=== PATIENT | male | born 1965 | race Caucasian/White ===

== ENCOUNTER 2020-05-02 09:44 | Inpatient (IN) | payer OTHER, SELFPAY ==
[~2020-05-02] VITALS: Ht 177.8 cm; Wt 89.9 kg
[2020-05-02] MEDS ORDERED: [UNRECOGNIZED DRUG - REMARK] (09:51)
[2020-05-02] MEDS ORDERED: NS 1,000 ML IV ONE (10:15)
[2020-05-02 10:31] LABS: BASO # 0.1 10^3/uL (0.0-0.2); BASO % 0.3 % (0.0-1.0); EOS # 0.1 10^3/uL (0.0-0.5); EOS % 0.3 % (0.0-3.0); HEMATOCRIT 48.6 % (42.0-52.0); HEMOGLOBIN 16.6 g/dl (13.5-17.5); LYMPH # 2.8 10^3/uL (1.5-5.0); LYMPH % 11.6 % (24.0-44.0); MEAN CORPUSCULAR HEMOGLOBIN 32.3 pg (27.0-33.0); MEAN CORPUSCULAR HGB CONC 34.2 g/dl (32.0-36.5); MEAN CORPUSCULAR VOLUME 94.6 fl (80.0-96.0); MONO # 1.4 10^3/uL (0.0-0.8); NEUTROPHILS # 19.5 10^3/uL (1.5-8.5); NEUTROPHILS % 81.1 % (36.0-66.0); PLATELET COUNT, AUTOMATED 280 10^3/uL (150-450); RED BLOOD COUNT 5.14 10^6/uL (4.30-6.10)
--- NOTE | 2020-05-02 10:38 | REP ---
Acute abdominal series: Three views. History: Abdominal pain. Findings: Upright chest radiograph is normal. There is no evidence of infiltrate or free subdiaphragmatic air air. Heart is not enlarged. Supine and erect views of the abdomen demonstrate an unremarkable bowel gas pattern. No mass, organomegaly, or pathologic calcification is seen. Psoas margins and flank stripes are intact. No bony destructive lesion is seen. Impression: Negative acute abdominal series. Electronically Signed by Papo Avelar MD 05/02/2020 10:30 A
--- NOTE | 2020-05-02 10:55 | REP ---
Clinical: Right upper quadrant pain. Technique: Real time causey scale ultrasound examination using curved array transducer. Findings: Gallbladder demonstrates 1.7 cm 1.8 cm gallstones along with small amount of layering sludge/debris. Mild wall thickening to 4.7 mm noted. No obvious pericholecystic fluid is appreciated and the common bile duct is upper limits of normal at 6.6 mm diameter. Liver demonstrates 1.3 cm hyperechoic lesion in the posterior right lobe suggesting hemangioma. The pancreas is incompletely evaluated due to interposed bowel gas but visualized portions appear normal. The right kidney is normal in reniform shape without hydronephrosis and measures 11.3 x 5.0 x 4.7 cm. No ascites. Impression: 1. Cholelithiasis with gallbladder wall thickening. Findings are nonspecific and early acute cholecystitis cannot be excluded. Close clinical observation is recommended. 2. 1.3 cm presumed hepatic hemangioma. Electronically Signed by Yandel Walton MD 05/02/2020 10:47 A
[2020-05-02 11:06] LABS: ALBUMIN 4.2 GM/DL (3.2-5.2); ALT/SGPT 22 U/L (12-78); AMYLASE 53 U/L (25-115); BILIRUBIN,DIRECT 0.2 MG/DL (0.0-0.2); BILIRUBIN,TOTAL 0.8 MG/DL (0.2-1.0); BLOOD UREA NITROGEN 12 MG/DL (7-18); CALCIUM LEVEL 9.4 MG/DL (8.5-10.1); CARBON DIOXIDE LEVEL 24 MEQ/L (21-32); CHLORIDE LEVEL 102 MEQ/L (98-107); CK-MB VALUE MASS < 1.0 NG/ML (<3.6); CPK CREATINE PHOSPHOKINASE 100 U/L (39-308); CREATININE FOR GFR 0.87 MG/DL (0.70-1.30); GLOMERULAR FILTRATION RATE > 60.0 (>56); GLUCOSE, FASTING 99 MG/DL (70-100); LIPASE 83 U/L (73-393); POTASSIUM SERUM 3.9 MEQ/L (3.5-5.1); SODIUM LEVEL 134 MEQ/L (136-145); TOTAL PROTEIN 7.9 GM/DL (6.4-8.2); TROPONIN I < 0.02 NG/ML (< 0.10)
[2020-05-02] MEDS ORDERED: ONDANSETRON 4MG/2ML VIAL IV ONE (12:00)
[2020-05-02] MEDS ORDERED: KETOROLAC 30 MG/ML 1ML VIAL IV ONE (12:00)
[2020-05-02] MEDS ORDERED: ISOVUE-370 76% 100ML VIAL As Ordered ONE (12:18)
[2020-05-02] MEDS ORDERED: ACET-907 PO (12:57)
[2020-05-02] MEDS ORDERED: PIPERACILLIN/TAZOBACTAM SOD 3.375 GM in D5W MINI-BAG PLUS 50 ML IV ONE (13:00)
--- NOTE | 2020-05-02 13:38 | REP ---
CT ABDOMEN AND PELVIS WITH IV BUT WITHOUT ORAL CONTRAST: HISTORY: Right upper quadrant pain. Leukocytosis. Comparison sonography from earlier this date showed cholelithiasis with gallbladder wall thickening. CT CONTRAST DOSE: 100 mL of intravenous Isovue [address] FINDINGS: Preliminary digital u.s. commissioner radiograph are unremarkable. The lung bases are clear on axial CT images. Liver is normal in size. There is a 1.1 cm radiolucency in the right lobe consistent with the ultrasound finding of hyperechoic area here consistent with hemangioma. No other focal liver lesion is seen. There is a predominantly radiolucent stone in the dependent portion the gallbladder. This is fairly large, 1.5 cm in greatest diameter corresponding with the sonographic findings. There is diffuse pericholecystic or gallbladder wall fluid surrounding the gallbladder. The adjacent abdominal fat does not appear infiltrated or edematous however. There are scattered calcifications of the pancreas consistent with chronic pancreatitis changes. The spleen is unremarkable. Kidneys enhance symmetrically are morphologically intact. There is left colonic diverticulosis without CT evidence of diverticulitis. Normal appendix is seen in the right lower quadrant. Urinary bladder, prostate, and seminal vesicles are unremarkable. No abdominal wall defect is seen. No evidence of free intraperitoneal air or fluid. No bony destructive lesion is appreciated. Normal caliber aorta. No retroperitoneal mass or adenopathy is seen. IMPRESSION: 1. Cholelithiasis. 2. Intramural gallbladder wall or pericholecystic fluid noted. Gallbladder is mildly distended. It measures approximately 12 cm in oblique craniocaudal span. Question early acute cholecystitis. 3. There are multiple punctate calcifications scattered about the pancreas consistent with chronic pancreatitis changes. 4. Left colonic diverticulosis without CT evidence of diverticulitis. Electronically Signed by Papo Avelar MD 05/02/2020 02:03 P
[2020-05-02] MEDS ORDERED: KETOROLAC 30 MG/ML 1ML VIAL IV PRN (14:30)
[2020-05-02] MEDS ORDERED: ACETAMINOPHEN TAB 650MG DOSE (2X325MG) PO PRN (14:30)
[2020-05-02] MEDS ORDERED: MORPHINE 2 MG/ML 1ML VIAL (J2270) IV PRN (14:30)
[2020-05-02] MEDS ORDERED: ONDANSETRON 4MG/2ML VIAL IV PRN (14:30)
[2020-05-02] MEDS ORDERED: PERCOCET 5MG/325MG TAB PO PRN ×2 (14:30)
[2020-05-02] MEDS: LR 1,000 ML IV SCH (16:10)
[2020-05-02] MEDS: AMPICILLIN SOD/SULBACTAM SOD 3 GM in D5W MINI-BAG PLUS 100 ML IV SCH (18:28)
--- NOTE | 2020-05-02 21:41 | ECGEPIP ---
[facility] - ED Test Date: 2020-05-02 Pat Name: LOVE FELIZ Department: Room: [place] [address] Gender: Male [employer] Superintendent: LEILA : 1965 Requested By: TRACY Gomez PA-C Order Number: [id number] Reading MD: Kristopher Skaggs Measurements Intervals [place] Rate: 80 P: 56 ND: 160 QRS: 51 QRSD: 101 T: 54 QT: 376 QTc: 436 Interpretive Statements SINUS RHYTHM NO PRIORS FOR COMPARISON Electronically Signed on 05-02-2020 21:41:09 EDT by Kristopher Skaggs
[2020-05-02 22:00] VITALS: BP 119/66
[2020-05-02] MEDS: SENOKOT S TAB PO SCH (22:04)
[2020-05-02] MEDS: ENOXAPARIN 40MG/0.4ML SYRINGE (J1650 PER 10MG) SC SCH (22:04)
[2020-05-03] VITALS (8 sets, daily range): BP systolic 119–131; BP diastolic 78–85; O2SAT 96
[2020-05-03] MEDS: LR 1,000 ML IV SCH ×3 (01:17→20:30)
[2020-05-03] MEDS: AMPICILLIN SOD/SULBACTAM SOD 3 GM in D5W MINI-BAG PLUS 100 ML IV SCH ×4 (01:17→18:20)
--- NOTE | 2020-05-03 05:37 | HPEPDOC ---
General Surgery H&P Date of Admission May 02, 2020 Attending Physician: ANNETTE ERWIN MD History and Physical CHIEF COMPLAINT: abdominal pain HISTORY OF PRESENT ILLNESS: Patient is a relatively healthy 55-year-old male who presented to the emergency room with reports of 5 day history of ongoing upper abdominal pain and discomfort associated with nausea and intermittent episodes of vomiting as well as poor oral intake. He denies any prior episodes of similar symptoms. This started roughly 5 days ago, after eating some leftover meals at home. Initially this was waxing and waning any attributed this to possible mild food poisoning so he throughout the food in the refrigerator. At about 3 days ago the pain became more constant located at the epigastric area radiating to both right and left side more prominent than the right side. He describes this as sharp and constant. He feels nauseated every time he tries to eat food feeling like throwing up and at times have been throwing up. He denies any fevers or chills. Due to the symptoms persisting he went to the emergency room where he is currently being evaluated. ALLERGIES: Please see below. HOME MEDICATIONS: Please see below. PAST MEDICAL HISTORY: 1. No chronic medical problems. PAST SURGICAL HISTORY: 1. Excision of ganglion cyst on his hand. PERSONAL/SOCIAL HISTORY: Patient reports smoking a pack a day. Denies alcohol intake or recreational drug use. REVIEW OF SYSTEMS: GENERAL: Symptoms as above has been ongoing for about 5 days. Baseline is healthy. HEENT: Patient denies any problems with his vision or with his hearing. NECK: [Denies any neck pain]. CARDIOVASCULAR: [Denies chest pain and palpitations]. MUSCULOSKELETAL: [Denies arthralgias, back pain and thrombophlebitis]. SKIN: [Denies rash]. NEUROLOGIC: [Denies headache, stroke and transient ischemic attack]. PSYCHIATRIC: [Denies anxiety and depression]. ENDOCRINE: [Denies thyroid disease]. HEMATOLOGY/ONCOLOGY: [Denies any bleeding or clotting disorder]. HEART: [Denies any chest pains, palpitations, paroxysmal dyspnea, orthopnea]. PULMONARY: [Denies chronic cough, dyspnea and wheezing]. GASTROINTESTINAL: See HPI. GENITOURINARY: [Denies dysuria, frequency, hematuria and nocturia]. ENDOCRINE: [Denies polydipsia, polyphagia, polyuria, heat or cold intolerance]. INFECTIOUS: [Denies any recent upper respiratory tract infection, UTI, need for use of antibiotics]. NUTRITION: Reports poor appetite due to abdominal symptoms. He denies any abnormal ongoing weight loss. PHYSICAL EXAMINATION: VITAL SIGNS: Please see below. GENERAL APPEARANCE: On examination patient seen on the stretcher in appears only minimally uncomfortable at this point though he tells me that on presentation he was severely uncomfortable. He has just gotten some IV pain medications.. [Awake, alert, oriented]. HEENT: [Normocephalic, atraumatic. [place] palpebral conjunctivae. Anicteric sclerae. Lips moist]. CHEST: [No chest wall abnormalities. Normal respiratory motion/effort]. NECK: [Supple. No thyromegaly. No lymphadenopathies]. LUNGS: [Lung sounds are clear to auscultation bilaterally. No wheezing appreciated]. HEART: [No chest wall abnormalities. Heart rate and rhythm are regular with no murmurs]. ABDOMEN: He has a mildly obese abdomen, minimally distended. He has no abdominal scars nor signs of umbilical or groin hernias. He is mildly tender but the right lateral subcostal area with no rebound or guarding or definite Khalil sign. No palpable masses at the right upper quadrant area.. SKIN: Warm and dry. EXTREMITIES: No significant extremity edema. NEUROLOGICAL: Awake, alert and oriented . ANCILLARIES: . LABORATORY DATA: Please see below. MICROBIOLOGY: Please see below. IMAGING: He had an ultrasound of the abdomen performed, an abdominal x-ray that rule out perforation or obstruction and on my request CT abdomen and pelvis with IV but no oral contrast. I reviewed the images with the patient. IMPRESSION AND PLAN: Cholelithiasis with acute cholecystitis He reports an evolving history of abdominal pain that started 5 days ago with became constant 3 days ago that continues to bother him. He has some mild systemic reaction from this. He denies fevers or chills but he does report some nausea and vomiting that prevents him from eating adequately. He is afebrile here in the emergency room and non-tachycardic. He has a significantly elevated white cell count of 24,000 with dominantly neutrophils at 81%. His LFTs are normal. He does not have lactic acidosis. The emergency room provider reports he had significant generalized abdominal tenderness on presentation but this seems to have improved with IV pain medication as he only had some minimal tenderness on my exam. Ultrasound does demonstrates cholelithiasis with gallbladder wall thickening as well as a small hepatic hemangioma. He did not have any free intraperitoneal air on the x-ray. I asked them to do a CT abdomen and pelvis due to the reports of generalized peritonitis as well as markedly elevated white cell count to make sure we did not have a perforated duodenal ulcer. This confirms mainly a gallbladder pathology with cholelithiasis, intramural gallbladder wall and/or pericholecystic edema noted. There is some incidental findings of punctate calcifications at the pancreas. He denies any chronic alcohol use or any other colleagues at all. Less primary pathology seems to be cholecystitis. There is a question of whether this has been ongoing between 5 days for 3 days when his symptoms became constant. So we discussed our planned intervention. He'll certainly need to be admitted and I'll start him on IV antibiotics. He had dose of Zosyn 3.375 g IV in the ER. Given relative health I think continuing just Unasyn she does get cover for normal biliary pathogens. I will keep him nothing by mouth today. I think the exam as well as with the CT scan findings, we can proceed with lapar oscopic cholecystectomy. We discussed other options including nonoperative treatment at this time and interval cholecystectomy and discussed the pros and cons of this. I think it would be prudent to proceed with cholecystectomy at this time. We discussed the risks and benefits especially that of some increased risk for bile duct injury as well as converting to open surgery. I would book him for robotic-assisted laparoscopic cholecystectomy and use ICG to help with ductal evaluation.. Vital Signs Vital Signs Date Time Temp Pulse Resp B/P (MAP) Pulse Ox O2 Delivery O2 Flow Rate FiO2 05/02/20 22:00 98.2 85 15 119/66 (83) 96 Room Air I&Os I&O- Last 24 Hours up to 6 AM 05/03/20 06:00 Intake Total 2410 ml Balance 2410 ml Laboratory Data Labs 24H Laboratory Tests 2 05/02/20 10:16: Anion Gap 8, Glomerular Filtration Rate > 60.0, Calcium Level 9.4, Total Bilirubin 0.8, Direct Bilirubin 0.2, Aspartate Amino Transf (AST/SGOT) 12, Alanine Aminotransferase (ALT/SGPT) 22, Alkaline Phosphatase 64, Total Creatine Kinase 100, Creatine Kinase MB < 1.0, Creatine Kinase MB Relative Index 1.00, Troponin I < 0.02, Total Protein 7.9, Albumin 4.2, Albumin/Globulin Ratio 1.1, Amylase Level 53, Lipase 83 05/02/20 10:17: Immature Granulocyte % (Auto) 0.7, Neutrophils (%) (Auto) 81.1H, Lymphocytes (%) (Auto) 11.6L, Monocytes (%) (Auto) 6.0H, Eosinophils (%) (Auto) 0.3, Basophils (%) (Auto) 0.3, Neutrophils # (Auto) 19.5H, Lymphocytes # (Auto) 2.8, Monocytes # (Auto) 1.4H, Eosinophils # (Auto) 0.1, Basophils # (Auto) 0.1, Nucleated Red Blood Cells % (auto) 0.0, Lactic Acid Level 1.3 05/02/20 11:27: Urine Color KARISSA, Urine Appearance CLEAR, Urine pH 5.0, Urine Specific [place] 1.030, Urine Protein 1+H, Urine Glucose (UA) NEGATIVE, Urine Ketones 1+H, Urine Blood NEGATIVE, Urine Nitrite NEGATIVE, Urine Bilirubin NEGATIVE, Urine Urobilinogen 2.0H, Urine Leukocyte Esterase NEGATIVE, Urine WBC (Auto) 3, Urine RBC (Auto) 3, Urine Hyaline Casts (Auto) 0, Urine Bacteria (Auto) NEGATIVE, Urine Squamous Epithelial Cells 0, Urine Mucus (Auto) LARGE, Urine Sperm (Auto) CBC/BMP Laboratory Tests 05/02/20 10:16 05/02/20 10:17 Microbiology Microbiology 05/02/20 Respiratory Virus Panel (PCR) (ALINE) - Final, Complete 05/02/20 Blood Culture, Received Pending 05/02/20 Blood Culture, Received Pending Home Medications Scheduled PRN Acetaminophen (Tylenol) 325 Mg Tablet, 650 MG PO QID PRN for PAIN / FEVER, (Reported) Allergies Coded Allergies: No Known Allergies (Unverified , 05/02/20) A-FIB/CHADSVASC A-FIB History Current/History of A-Fib/PAF?: No Current PO Anticoag Therapy: No ANNETTE ERWIN MD May 03, 2020 05:37
[2020-05-03 06:08] LABS: BASO # 0.1 10^3/uL (0.0-0.2); BASO % 0.6 % (0.0-1.0); EOS # 0.4 10^3/uL (0.0-0.5); EOS % 2.4 % (0.0-3.0); HEMATOCRIT 43.3 % (42.0-52.0); HEMOGLOBIN 14.9 g/dl (13.5-17.5); LYMPH # 2.3 10^3/uL (1.5-5.0); LYMPH % 15.6 % (24.0-44.0); MEAN CORPUSCULAR HEMOGLOBIN 33.1 pg (27.0-33.0); MEAN CORPUSCULAR HGB CONC 34.4 g/dl (32.0-36.5); MEAN CORPUSCULAR VOLUME 96.2 fl (80.0-96.0); MONO # 1.1 10^3/uL (0.0-0.8); MONO % 7.6 % (0.0-5.0); NEUTROPHILS # 10.6 10^3/uL (1.5-8.5); PLATELET COUNT, AUTOMATED 233 10^3/uL (150-450); WHITE BLOOD COUNT 14.5 10^3/uL (4.0-10.0)
[2020-05-03 06:42] LABS: ALBUMIN 3.2 GM/DL (3.2-5.2); ALT/SGPT 19 U/L (12-78); BLOOD UREA NITROGEN 10 MG/DL (7-18); CALCIUM LEVEL 8.2 MG/DL (8.5-10.1); CARBON DIOXIDE LEVEL 27 MEQ/L (21-32); CHLORIDE LEVEL 108 MEQ/L (98-107); CREATININE FOR GFR 0.87 MG/DL (0.70-1.30); GLOMERULAR FILTRATION RATE > 60.0 (>56); GLUCOSE, FASTING 91 MG/DL (70-100); POTASSIUM SERUM 4.2 MEQ/L (3.5-5.1); SODIUM LEVEL 141 MEQ/L (136-145); TOTAL PROTEIN 6.3 GM/DL (6.4-8.2)
--- NOTE | 2020-05-03 07:41 | IPNPDOC ---
Text Note Date of Service The patient was seen on 05/03/20. NOTE Patient admitted yesterday for acute cholecystitis, reports improved abdominal discomfort VS: afebrile, nontachycardic Exam: More comfortable appearance no icteric sclerae abdomen: soft, mild tenderness over RUQ and epigastric area, no guarding Acute Cholecystitis: Patient for Laparoscopic Cholecystectomy today He has been on antibiotics for acute cholecystitis. I reviewed with him the risks and benefits of the procedure including risks for bile duct injury, bile leakage, conversion to open surgery as well as risks to nearby bowels and vascular injury with laparoscopy. We will give him ICG that this will help us identify the cystic duct and prevent bile duct injury during robotic-assisted laparoscopic surgery. Consent was obtained from the patient.. VS,Phubone, I+O VS, Phubone, I+O Laboratory Tests 05/02/20 10:16 05/02/20 10:17 05/03/20 05:36 Vital Signs Date Time Temp Pulse Resp B/P (MAP) Pulse Ox O2 Delivery O2 Flow Rate FiO2 05/03/20 06:00 97.8 76 17 119/78 (92) 97 Room Air I&O- Last 24 Hours up to 6 AM 05/03/20 05:59 Intake Total 2410 ml Balance 2410 ml ANNETTE ERWIN MD May 03, 2020 07:41
[2020-05-03] MEDS: SENOKOT S TAB PO SCH ×2 (08:00→20:29)
[2020-05-03] MEDS ORDERED: propofoL 200 MG/20 ML VIAL As Ordered ONE (14:19)
[2020-05-03] MEDS ORDERED: KETOROLAC 60MG 2ML VIAL As Ordered ONE (14:19)
[2020-05-03] MEDS ORDERED: ONDANSETRON 4MG/2ML VIAL As Ordered ONE (14:19)
[2020-05-03] MEDS ORDERED: dexameTHASONE 4 MG/ML 1ML VIAL (J1100 PER 1MG) As Ordered ONE (14:19)
[2020-05-03] MEDS ORDERED: ROCURONIUM BROMIDE 50 MG/5 ML VIAL As Ordered ONE (14:19)
[2020-05-03] MEDS ORDERED: LIDOCAINE PRES-FREE 2% 10ML AMP As Ordered ONE (14:19)
[2020-05-03] MEDS ORDERED: SUGAMMADEX SODIUM 500 MG/5 ML VIAL (BRIDION) As Ordered ONE (14:19)
[2020-05-03] MEDS ORDERED: MIDAZOLAM INJ 2MG/2ML VIAL (J2250 PER 1MG) As Ordered ONE (14:20)
[2020-05-03] MEDS ORDERED: fentaNYL 100 MCG/2 ML INJECTION (J3010) As Ordered ONE (14:20)
[2020-05-03] MEDS ORDERED: LIDOCAINE 1% SDV 30ML VIAL As Ordered ONE (14:53)
[2020-05-03] MEDS ORDERED: BUPIVACAINE HCL 0.25% 30ML VIAL As Ordered ONE (14:53)
[2020-05-03] MEDS ORDERED: fentaNYL 250 MCG/5 ML INJECTION (J3010) As Ordered ONE (15:54)
[2020-05-03] MEDS ORDERED: LABETALOL 100MG/20ML VIAL As Ordered ONE (16:35)
--- NOTE | 2020-05-03 17:30 | POST-OPPD ---
Postoperative Procedure Note Date Of Procedure: May 03, 2020 PREOPERATIVE DIAGNOSIS: Cholelithiasis, Acute Cholecystitis POSTOPERATIVE DIAGNOSIS: Acute over chronic cholecystitis, hydrops of gallbladder FINDINGS: enlarged, tensely distended gallbladder, mucoid content consistent with hydrops, markedly edematous gallbladder wall, large 2 cm stone stuck at the neck of the gallbladder PROCEDURE: Robotic Assisted Laparoscopic Cholecystectomy with ICG identification of the cystic duct SURGEON: Jeff Knott MD CORRECTIVE AND MANUAL ARTS THERAPIST: ANESTHESIA: General Anesthesia SPECIMENS: gallbladder ESTIMATED BLOOD LOSS: 30 mL DRAINS: none COMPLICATIONS: none POSTOPERATIVE CONDITION: stable to PACU, extubated JEFF KNOTT MD May 03, 2020 17:30
[2020-05-03] MEDS ORDERED: LR 1,000 ML IV SCH (17:45)
[2020-05-03] MEDS ORDERED: HYDROMORPHONE HCL 0.5 MG/ 0.5 ML SYRINGE (J1170 PER 1) IV PRN (17:45)
[2020-05-03] MEDS ORDERED: oxyCODONE 5MG TAB PO PRN (17:45)
[2020-05-03] MEDS ORDERED: fentaNYL 100 MCG/2 ML INJECTION (J3010) IV PRN (17:45)
[2020-05-03] MEDS ORDERED: ONDANSETRON 4MG/2ML VIAL IV PRN (17:45)
[2020-05-03] MEDS: ENOXAPARIN 40MG/0.4ML SYRINGE (J1650 PER 10MG) SC SCH (20:30)
[2020-05-04] MEDS: AMPICILLIN SOD/SULBACTAM SOD 3 GM in D5W MINI-BAG PLUS 100 ML IV SCH ×2 (00:45→06:36)
[2020-05-04 02:08] VITALS: BP 105/70
[2020-05-04 05:57] VITALS: BP 112/75
[2020-05-04 07:18] LABS: BASO % 0.2 % (0.0-1.0); EOS # 0.1 10^3/uL (0.0-0.5); EOS % 0.4 % (0.0-3.0); HEMATOCRIT 41.7 % (42.0-52.0); LYMPH # 2.3 10^3/uL (1.5-5.0); LYMPH % 15.7 % (24.0-44.0); MEAN CORPUSCULAR HEMOGLOBIN 32.4 pg (27.0-33.0); MEAN CORPUSCULAR HGB CONC 33.6 g/dl (32.0-36.5); MEAN CORPUSCULAR VOLUME 96.5 fl (80.0-96.0); MONO % 6.6 % (0.0-5.0); NEUTROPHILS # 11.1 10^3/uL (1.5-8.5); NEUTROPHILS % 76.5 % (36.0-66.0); PLATELET COUNT, AUTOMATED 220 10^3/uL (150-450); RED BLOOD COUNT 4.32 10^6/uL (4.30-6.10); WHITE BLOOD COUNT 14.5 10^3/uL (4.0-10.0)
[2020-05-04 07:50] LABS: ALBUMIN 3.3 GM/DL (3.2-5.2); ALT/SGPT 27 U/L (12-78); BILIRUBIN,TOTAL 0.7 MG/DL (0.2-1.0); BLOOD UREA NITROGEN 8 MG/DL (7-18); CALCIUM LEVEL 8.7 MG/DL (8.5-10.1); CARBON DIOXIDE LEVEL 27 MEQ/L (21-32); CHLORIDE LEVEL 105 MEQ/L (98-107); CREATININE FOR GFR 0.75 MG/DL (0.70-1.30); GLOMERULAR FILTRATION RATE > 60.0 (>56); GLUCOSE, FASTING 98 MG/DL (70-100); POTASSIUM SERUM 3.9 MEQ/L (3.5-5.1); SODIUM LEVEL 137 MEQ/L (136-145); TOTAL PROTEIN 6.2 GM/DL (6.4-8.2)
[2020-05-04] MEDS: SENOKOT S TAB PO SCH (08:34)
--- NOTE | 2020-05-04 10:16 | ROOPDOC ---
[facility] Report Of Operation Report of Operation DATE OF PROCEDURE: 05/03/20 PREPROCEDURE DIAGNOSES: Acute cholecystitis, cholelithiasis. POSTPROCEDURE DIAGNOSES: Cholelithiasis, acute over chronic cholecystitis, hydrops of the gallbladder. PROCEDURE: Robotic-assisted laparoscopic cholecystectomy with ICG identification of the cystic duct. SURGEON: Jeff Knott MD SOCIAL GROUP WORKER: ANESTHESIA: Gen. anesthesia. ESTIMATED BLOOD LOSS: Approximately 30 mL. COMPLICATIONS: None. REMARKS: Markedly inflamed, chronically thickened wall of the gallbladder, distended and enlarged gallbladder, mucoid light greenish content consistent with hydrops of the gallbladder. He has a 2 cm stone stuck in the neck of the gallbladder obstructing the cystic duct.. DESCRIPTION OF PROCEDURE: Patient has been receiving scheduled doses of Unasyn 3 g IV every 6 hours for acute cholecystitis. He was given a dose of ICG 5 mg IV with 10 mL NS flush after intubation. He was brought to the operating room, laid supine on the table, left arm tucked, compression boots placed for DVT prophylaxis. General endotracheal anesthesia started. His abdomen then prepped and draped in usual sterile fashion. We paused for a surgical timeout using both pre-incision safety checklist to verify correct patient, procedure site and additional clinical information prior to beginning the procedure. Entry to the abdomen done through a small incision towards the left side of the umbilicus. A Veress needle is inserted on a controlled fashion. CO2 insufflation started to pressure 15 mmHg. Using the same incision an 8 mm optical trocar was then placed under direct vision of laparoscope. The insertion site was inspected for injury and none was found. Patient was then positioned on a 15 reverse trendelenburg position to retract the bowels away from the area. I then placed 3 working ports under direct vision on the same line as the umbilical port, the left most at the anterior axillary line, 8 cm apart at the midclavicular line in the right side and 8 cm to the left of the umbilical port at the left midclavicular line to triangulate the gallbladder and line up the instrument ports. The da Yenifer Xi robotic tower was then maneuvered in place, the trochars were docked onto the robotic arms, the camera and instruments set up for the procedure. Operative findings: On diagnostic laparoscopy, initially the gallbladder was not visible covered with omentum and this was retracted off the gallbladder gallbladder is noted to be markedly and tensely distended with thick wall with evidence for acute gallbladder wall edema and pericholecystic fluid consistent with acute cholecystitis this was reaching several centimeters beyond the liver edge. Liver overall appears mostly in contour. The stomach was slightly distended. The visible portions of the bowel has some mild enlargement consistent with mild ileus. I used an aspirating needle to decompress the gallbladder and got this light green mucoid fluid consistent with hydrops of the gallbladder. The fundus of the gallbladder was grasped and the gallbladder was elevated superiorly exposing the lower body and neck of the gallbladder. The peritoneum overlying the medial and lateral side at the mid body of the gallbladder was opened up and dissected free both anteriorly and posteriorly to help with retraction of the gallbladder. The hepatocystic triangle was approached and dissected using a forced bipolar instrument and robotic hook cautery. With firefly use, I could visualize the course of the cystic duct specially with retraction of the 2 cm stone at the neck of the gallbladder. The cystic duct was identified coming off from the neck gallbladder this was circumferentially dissected. The cystic artery was identified in its usual position medially behind a small lymph node of Calot. This was similarly circumferentially dissected off surrounding adipose tissue. We continued posterior dissection proximally at the neck of the gallbladder until a critical view of safety was achieved whereby only the previously identified duct and artery coursing through the neck the gallbladder. The lower body and neck of the gallbladder was coming off the liver plate early that the gallbladder itself seems to be just adhered at the liver plate starting at the lower body of the gallbladder. I switched views with firefly to determine and visualized the course of the cystic duct, likewise the common bile duct. Photodocumentation was done of the critical view of safety. At this point the cystic artery was clipped 2 times and divided. After again checking his anatomy and verifying that the previously identified cystic duct with firefly view, this was also clipped 3 times and divided (2 hemoclips downstream and one Hemoclip upstream). The rest of the gallbladder was then dissected free of the gallbladder bed using Bovie cautery. There was no bleeding at the liver bed with midway through dissection the relatively thin-walled gallbladder at the fundus had small amount of bile leaking out. The gallbladder was detached from the liver plate and placed into an Endobag. The serous fluid collections around the liver as well as the bleeding from the dissection was suc tioned off. The clips were checked and noted to be in placed. Firefly was used to look for possible bile leakage and none was found. I scrubbed back in. The gallbladder was extracted from the right axillary line port with blunt enlargement of the trocar site using Ness forceps. After re-insufflation I inspected the clips and noted this to be in place. No bleeding noted at the [facility] bed. The extraction site was closed with 0 Vicryl noted on a Saul Hudson device in a mattress fashion.. The abdomen was deflated all ports were removed. The umbilical fascial defect repaired with 0 Vicryl in a mattress fashion. Rest of the skin incisions closed with 4-0 Monocryl in subcuticular fashion. Dermabond was used to cover the port site incisions Patient was awakened, extubated and brought to recovery room stable. JEFF KNOTT MD May 04, 2020 10:16
--- NOTE | 2020-05-04 10:31 | DS.PDOC ---
Discharge Summary General Date of Admission May 02, 2020 at 14:27 Date of Discharge May 04, 2020 Attending Physician: ANNETTE ERWIN MD Discharge Summary PROCEDURES PERFORMED DURING STAY: Robotic Assisted laparoscopic cholecystectomy ADMITTING DIAGNOSES: 1. Acute Cholecystitis. DISCHARGE DIAGNOSES: 1. Acute Cholecystitis. COMPLICATIONS/CHIEF COMPLAINT: Acute Cholecystitis Cholelithiasis. HISTORY OF PRESENT ILLNESS: Patient is a relatively healthy 55-year-old male who presented to the emergency room with reports of 5 day history of ongoing upper abdominal pain and disc omfort associated with nausea and intermittent episodes of vomiting as well as poor oral intake. He denies any prior episodes of similar symptoms. This started roughly 5 days ago, after eating some leftover meals at home. Initially this was waxing and waning any attributed this to possible mild food poisoning so he throughout the food in the refrigerator. At about 3 days ago the pain became more constant located at the epigastric area radiating to both right and left side more prominent than the right side. He describes this as sharp and constant. He feels nauseated every time he tries to eat food feeling like throwing up and at times have been throwing up. He denies any fevers or chills. Due to the symptoms persisting he went to the emergency room where he is currently being evaluated. HOSPITAL COURSE: Patient was admitted from the emergency room, kept nothing by mouth for bowel rest. I started him on Unasyn 3 g IV every 6 hours cover for gram negatives primarily for his acute cholecystitis. He was maintained on IV fluid hydration. I took him to the operating room for robotic-assisted laparoscopic cholecystectomy on 05/03/2020 and this was completed successfully laparoscopically. He had a very markedly acutely inflamed gallbladder. He did well from this. He tells me he did not require any pain medication postoperatively. He only has some mild discomfort in one of the port sites. He tolerated clear liquids overnight and had regular food for breakfast. He is denying any nausea or vomiting or severe abdominal discomfort. He has been afebrile throughout his hospital course, none tachycardic, hemodynamically stable. His postoperative labs show some residual mild leukocytosis but normal LFTs. DISCHARGE MEDICATIONS: Please see below. ALLERGIES: Please see below. PHYSICAL EXAMINATION ON DISCHARGE: VITAL SIGNS: Please see below. GENERAL: looks very comfortable HEENT: anicteric sclerae, lips and mucosa moist NECK: supple, no JVD CARDIOVASCULAR EXAMINATION: Regulard heart rate and rhythm without murmurs RESPIRATORY EXAMINATION: Clear breath sounds to asculatation bilaterally, normal respiratory effort ABDOMINAL EXAMINATION: round, soft, nondistended 4 port sites covered with dermabond, dry. Nontender at RUQ and epigastric area, mild tender at right midclavicular port EXTREMITIES: no significan extremity edema SKIN: no jaundice, no skin rash NEUROLOGICAL EXAMINATION: awake, alert, oriented LABORATORY DATA: Please see below. IMAGING: He had a right upper quadrant ultrasound done followed by a CT abdomen and pelvis with IV contrast performed during stay in the emergency room PROGNOSIS: Good ACTIVITY: Light activity for 1 week and advance as tolerated. DIET: As tolerated DISCHARGE PLAN: Patient is discharged home. He does not need any further antibio tics. He does not require any narcotic pain medication. He can take [id number] NSAIDs are Tylenol for mild to moderate pain. He was given an excuse slip for work. DISPOSITION: . DISCHARGE INSTRUCTIONS: 1. follow up in 2 weeks ITEMS TO FOLLOWUP ON ON OUTPATIENT: 1. Final pathology results DISCHARGE CONDITION: Stable. TIME SPENT ON DISCHARGE: Greater than 30 minutes. Vital Signs/I&Os Vital Signs Date Time Temp Pulse Resp B/P (MAP) Pulse Ox O2 Delivery O2 Flow Rate FiO2 05/04/20 05:57 98.1 87 17 112/75 (87) 98 Room Air I&O- Last 24 Hours up to 6 AM 05/04/20 06:00 Intake Total 3230 ml Output Total 30 ml Balance 3200 ml Laboratory Data Labs 24H Laboratory Tests 2 05/04/20 06:36: Immature Granulocyte % (Auto) 0.6, Neutrophils (%) (Auto) 76.5H, Lymphocytes (%) (Auto) 15.7L, Monocytes (%) (Auto) 6.6H, Eosinophils (%) (Auto) 0.4, Basophils (%) (Auto) 0.2, Neutrophils # (Auto) 11.1H, Lymphocytes # (Auto) 2.3, Monocytes # (Auto) 1.0H, Eosinophils # (Auto) 0.1, Basophils # (Auto) 0.0, Nucleated Red Blood Cells % (auto) 0.0, Anion Gap 5L, Glomerular Filtration Rate > 60.0, Calcium Level 8.7, Total Bilirubin 0.7, Aspartate Amino Transf (AST/SGOT) 21, Alanine Aminotransferase (ALT/SGPT) 27, Alkaline Phosphatase 51, Total Protein 6.2L, Albumin 3.3, Albumin/Globulin Ratio 1.1 CBC/BMP Laboratory Tests 05/04/20 06:36 Microbiology Microbiology 05/02/20 Respiratory Virus Panel (PCR) (ALINE) - Final, Complete 05/02/20 Blood Culture - Preliminary, Resulted No Growth after 48 hours. All Specime... 05/02/20 Blood Culture - Preliminary, Resulted No Growth after 48 hours. All Specime... Discharge Medications Scheduled PRN Acetaminophen (Tylenol) 325 Mg Tablet, 650 MG PO QID PRN for PAIN / FEVER, (Reported) Allergies Coded Allergies: No Known Allergies (Unverified , 05/02/20) ANNETTE ERWIN MD May 04, 2020 10:31
== END 2020-05-04 11:48 | disposition home or self-care (01) | DRG 263 ==
LOC: M ED 09:44 → M ED INP 14:27 → ENRESERV 14:54 → M MS5PR 15:38
PROVIDERS: ADMIT Surgery; ATTEND Surgery
PROC: 8E0W4CZ Robotic Assisted Procedure of Trunk Region, Percutaneous Endoscopic Approach (ICD-10-PCS; 2020-05-03)
PROC: 0FT44ZZ Resection of Gallbladder, Percutaneous Endoscopic Approach (ICD-10-PCS; principal; 2020-05-03 15:00)
DX: K80.00 Calculus of gallbladder with acute cholecystitis without obstruction (principal); F17.200 Nicotine dependence, unspecified, uncomplicated; K82.1 Hydrops of gallbladder; Z11.59 Encounter for screening for other viral diseases